=== PATIENT | female | born 1985 | race Caucasian/White ===

== ENCOUNTER 2018-02-21 17:39 | Outpatient (CLI) | payer BC ==
--- NOTE | 2018-02-21 18:27 | RAD ---
SACRUM AND COCCYX: 02/21/18 HISTORY: Low back pain and sacral pain. Hip pain. FINDINGS/IMPRESSION: Sacrum and coccyx appear unremarkable. No fracture or osseous lesion identified. POS: [facility]
--- NOTE | 2018-02-21 18:30 | RAD ---
LUMBAR SPINE: 02/21/18 Two views. HISTORY: Low back pain. Bilateral hip pain. Lumbar vertebrae maintain normal height and alignment. Disc spaces are maintained. No spondylolisthes is. IMPRESSION: Unremarkable lumbar spine. POS: [facility]
== END 2018-02-21 17:40 | disposition home or self-care (01) ==
LOC: RAD 17:39
PROVIDERS: ATTEND Family Medicine
DX: M54.5 Low back pain (principal); M25.552 Pain in left hip; M25.551 Pain in right hip
CPT/HCPCS: 72100; 72220

== ENCOUNTER 2020-06-28 12:47 | Outpatient (CLI) | payer BC ==
--- NOTE | 2020-06-28 14:07 | MRI ---
MRI Cervical spine without contrast: HISTORY: Neck pain and paresthesias of arm. Right upper extremity weakness, numbness, and tingling for several weeks. COMPARISON: None FINDINGS: The craniocervical junction is unremarkable. No significant cord signal abnormality. Paravertebral soft tissues have a normal appearance and normal signal intensity. C1-2:No significant stenosis. C2-3: Mild disc osteophyte complex without significant central canal or neural foraminal narrowing. C3-4: Mild disc osteophyte complex without significant central canal or neural foraminal narrowing. C4-5: Mild disc osteophyte complex with small central disc protrusion. This narrows the ventral subar achnoid space but does not contact the spinal cord. Neural foramina are patent. C5-6: Mild loss of intervertebral disc height. Mild broad-based disc osteophyte complex is present gr eater centrally and paracentrally on the right. Uncinate process hypertrophy is present on the right. There is effacement of the ventral subarachnoid space with mild generalized narrowing of the c entral spinal canal. Mild bilateral neural foraminal narrowing is present. C6-7: Mild disc osteophyte complex with central disc protrusion. This narrows the ventral subarachnoi d space with slight mass effect on the anterior aspect of the spinal cord greater centrally. Normal signal intensity is seen in the spinal cord at this level. The neural foramina are patent. C7-T1: There is no disc bulge or disc herniation. The central spinal canal and neural foramina are pa tent. IMPRESSION: Mild disc degenerative changes greatest at the C4-5, C5-6, and C6-7 levels. No high-grade central can al or neural foraminal narrowing is present. Mild bilateral neural foraminal narrowing is seen at C5-6 level greater on the right, primarily related to uncinate process hypertrophy.
== END 2020-06-28 12:48 | disposition home or self-care (01) ==
LOC: SCSMRI 12:47
PROVIDERS: ATTEND Family Medicine
DX: M54.2 Cervicalgia (principal); R20.2 Paresthesia of skin; M50.321 Other cervical disc degeneration at C4-C5 level; M48.02 Spinal stenosis, cervical region
CPT/HCPCS: 72141

== ENCOUNTER 2023-10-04 08:53 | Outpatient (CLI) | payer BC | END 2023-10-04 08:54 | disposition home or self-care (01) | LOC: BICRAD 08:53 | PROVIDERS: ATTEND Student in an Organized Health Care Education/Training Program | DX: S83.91XA Sprain of unspecified site of right knee, initial encounter (principal) ==